=== PATIENT | female | born 1985 | race Native Hawaiian/Other Pacific Islander ===

== ENCOUNTER 2020-08-05 15:41 | Outpatient (CLI) | payer OTHER | END 2020-08-05 23:08 | disposition home or self-care (01) | LOC: INF 15:41 | PROVIDERS: ATTEND Internal Medicine | DX: Z23 Encounter for immunization (principal) | CPT/HCPCS: 96372 ==

== ENCOUNTER 2020-08-27 16:05 | Outpatient (CLI) | payer OTHER | END 2020-08-27 20:00 | disposition home or self-care (01) | LOC: INF | PROVIDERS: ATTEND Internal Medicine | DX: Z23 Encounter for immunization (principal) | CPT/HCPCS: 96372 ==